=== PATIENT | male | born 1945 | race Caucasian/White ===

== ENCOUNTER 2018-04-02 19:51 | Emergency (ER) | payer OTHER, SELFPAY ==
[2018-04-02 19:58] VITALS: BP 158/92; PULSE 55; RESP 14; TEMP 36.3; O2SAT 96; BMI 28.1
--- NOTE | 2018-04-02 21:21 | ED_ITS ---
HPI - Male Genitourinary <DEBBY Baxter - Last Filed: 04/02/18 22:04> General Chief complaint: Urogenital-Male Stated complaint: URINARY FREQUENCE Time Seen by Provider: 04/02/18 20:15 Source: patient Mode of arrival: ambulatory Limitations: no limitations History of Present Illness HPI Narrative: 72-year-old male here for complaint of having urinary frequency along with some pain into the suprapubic region and also into the prostate region for the past couple of days. He denies any fevers. He denies having any blood in his urine. He denies any discharge from the penis. Positive p.o. intake. He does have a history of BPH. He denies any other concerns or complaints at this time. Related Data Home Medications Medication Instructions Recorded Confirmed Flonase Allergy Relief 2 spr/day INTRANASAL (ALT) DAILY 04/02/18 04/02/18 beclomethasone dipropionate 2 puff BID 04/02/18 04/02/18 fluoxetine 2 tab PO DAILY 04/02/18 04/02/18 gabapentin 4 tab PO DAILY 04/02/18 04/02/18 metoprolol tartrate 1 tab PO PRN 04/02/18 04/02/18 omeprazole 1 tab PO BID 04/02/18 04/02/18 sildenafil (antihypertensive) 5 tab PO PRN PRN 04/02/18 04/02/18 tamsulosin [Flomax] 1 cap PO DAILY 04/02/18 04/02/18 tizanidine [Zanaflex] See Label Instructions .ROUTE 04/02/18 04/02/18 .COMPLEX PRN Previous Rx's Medication Instructions Recorded levofloxacin [Levaquin] 500 mg PO DAILY #6 tab 04/02/18 Allergies Allergy/AdvReac Type Severity Reaction Status Date / Time No Known Drug Allergies Allergy Verified 04/02/18 19:58 Review of Systems <DEBBY Baxter - Last Filed: 04/02/18 22:04> Constitutional Denies chills, Denies fever(s), Denies lethargy and Denies weakness Eyes Denies change in vision, Denies eye discharge, Denies irritation and Denies loss of vision ENT Ears, Nose, Mouth, and Throat: Denies change in voice, Denies neck pain and Denies sore throat Cardiovascular Denies chest pain, Denies irregular heart rhythm, Denies lightheadedness, Denies palpitations, Denies dyspnea, Denies dyspnea on exertion and Denies orthopnea Respiratory Denies cough, Denies dyspnea, Denies dyspnea on exertion and Denies wheezing Gastrointestinal Gastrointestinal: Denies abdominal pain, Denies change in bowel habits, Denies diarrhea, Denies nausea and Denies vomiting Genitourinary Reports urinary frequency Comments: Prosthetic pain and suprapubic pain Musculoskeletal Denies neck pain Integumentary/Breasts Denies pruritus, Denies erythema, Denies rash and Denies wounds Neurologic Denies confusion, Denies loss of vision and Denies weakness Psychiatric Denies anxiety, Denies confusion, Denies depression, Denies homicidal ideation and Denies suicidal ideation Endocrine Denies palpitations Hematologic/Lymphatic Denies easy bruising Allergic/Immunologic Denies wheezing Exam <DEBBY Baxter - Last Filed: 04/02/18 22:04> Initial Vital Signs Initial Vital Signs: Vital Signs Temperature 97.4 F L 04/02/18 19:58 Pulse Rate 55 L 04/02/18 19:58 Respiratory Rate 14 04/02/18 19:58 Blood Pressure 158/92 H 04/02/18 19:58 Pulse Oximetry 96 04/02/18 19:58 Const General: cooperative and well developed Nutritional Appearance: well nourished Orientation: alert, awake, oriented x3 and not confused HENCA Mouth: oral mucosae normal and moist mucous membranes Eyes Conjunctivae: conjunctivae normal Sclera: sclerae normal Pupils: PERRL EOM: EOM intact bilaterally Neck Neck: normal visual inspection, trachea midline, No lymphadenopathy, No midline deformity and No JVD Lymphatic: No lymphedema Chest Chest: normal inspection of the chest GI Inspection: non-distended Palpation: soft, no hepatosplenomegaly, No guarding, No pulsatile mass and No tender Auscultation: normal bowel sounds Rectal Exam: visual inspection normal and normal sphincter tone Other: Patient does have some tenderness to the suprapubic region on exam. Prostate if feels firm non boggy it is enlarged patient does report some tenderness on prostate exam. General: No CVA tenderness Skin General: no rashes or lesions noted, No jaundice and No petechiae Neuro General: alert, oriented x3, gait normal and no focal motor deficits Speech: speech normal <Marek Gilbert DO - Last Filed: 04/03/18 02:14> Initial Vital Signs Initial Vital Signs: Vital Signs Temperature 97.4 F L 04/02/18 19:58 Pulse Rate 55 L 04/02/18 19:58 Respiratory Rate 14 04/02/18 19:58 Blood Pressure 158/92 H 04/02/18 19:58 Pulse Oximetry 96 04/02/18 19:58 Course <DEBBY Baxter - Last Filed: 04/02/18 22:04> Orders Ordered: Discontinued Medications Levofloxacin (Levaquin) 500 mg PO NOW ONE Stop: 04/02/18 21:37 Last Admin: 04/02/18 22:13 Dose: 500 mg Vital Signs - 8 hr 04/02/18 19:58 04/02/18 21:33 04/02/18 22:31 Temperature 97.4 F L 97.6 F Pulse Rate 55 L 50 L 58 L Respiratory Rate 14 16 15 Blood Pressure 158/92 H 167/93 H Blood Pressure [Left Arm] 163/95 H Pulse Oximetry 96 98 96 <Marek Gilbert DO - Last Filed: 04/03/18 02:14> Orders Ordered: Discontinued Medications Levofloxacin (Levaquin) 500 mg PO NOW ONE Stop: 04/02/18 21:37 Last Admin: 04/02/18 22:13 Dose: 500 mg Vital Signs - 8 hr 04/02/18 19:58 04/02/18 21:33 04/02/18 22:31 Temperature 97.4 F L 97.6 F Pulse Rate 55 L 50 L 58 L Respiratory Rate 14 16 15 Blood Pressure 158/92 H 167/93 H Blood Pressure [Left Arm] 163/95 H Pulse Oximetry 96 98 96 MDM - Male Genitourinary <DEBBY Baxter - Last Filed: 04/02/18 22:04> MDM Narrative Medical decision making narrative: Urinalysis was obtained was negative for any acute findings. Bladder scan was obtained and shows 650 mL inside the bladder. Cabral catheter was placed with leg bag. He is referred to Urology patient will seek Urology through his primary care on Thursday instead of following up at . Due to pain into the prostate area will empirically treat for starting prostatitis with ciprofloxacin. [id number] Tylenol as needed for any discomfort. Follow up with primary care provider and Urology return emergency room for any worsening symptoms. Discharge Plan Departure Patient Disposition: Home Clinical Impression: Acute urinary retention, Prostatitis Discharge Date/Time: 04/02/18 22:32 Interventions: ED Discharge Assessment Last Done: 04/02/18 22:31 Instructions: DI for Urinary Retention in Men Activity Restrictions/Additional Instructions: 650 mL was in your bladder after you just urinated indicating acute urinary retention most likely secondary to BPH. However could be exacerbated by starting infection called prostatitis as you are tender to the prostate area as well. Will treat for starting prostatitis with ciprofloxacin an antibiotic use as directed. You will need to follow up with Urology in the next few days for further evaluation. Have referral placed to Urology and see Urology. You may call [facility] urology if you are unable to obtain a urology referral through your primary care. For any worsening symptoms return to the emergency room. Use [id number] Tylenol and/or Motrin as needed for any discomfort. For any worsening symptoms return to the emergency room. Prescriptions: New levofloxacin [Levaquin] 500 mg tablet 500 mg PO DAILY Qty: 6 RF: 0 No Action Flonase Allergy Relief 2 spr/day Intranasal (ALT) DAILY RF: 0 beclomethasone dipropionate 2 puff BID RF: 0 tamsulosin [Flomax] 0.4 mg Capsule 1 cap PO DAILY RF: 0 gabapentin 300 mg Capsule 4 tab PO DAILY RF: 0 omeprazole 20 mg Capsule,Delayed Release(Dr/Ec) 1 tab PO BID RF: 0 fluoxetine 20 mg Capsule 2 tab PO DAILY RF: 0 metoprolol tartrate 25 mg Tablet 1 tab PO PRN RF: 0 tizanidine [Zanaflex] 4 mg Capsule See Label Instructions .ROUTE .COMPLEX PRN (Reason: Muscle Pain) RF: 0 sildenafil (antihypertensive) 20 mg Tablet 5 tab PO PRN PRN (Reason: Sexual Activity) RF: 0 Referrals: [facility] [Provider Group] Kranthi Montgomery ARNP [Emergency Provider] - <Marek Gilbert DO - Last Filed: 04/03/18 02:14> [facility] ED Attending [place] Attestation: I was available for consultation during this patient's emergency department encounter
[2018-04-02 21:33] VITALS: BP 163/95; PULSE 50; RESP 16; TEMP 36.4; O2SAT 98
[2018-04-02] MEDS: levoFLOXacin 500 MG TABLET PO (22:13)
[2018-04-02 22:31] VITALS: BP 167/93; PULSE 58; RESP 15; O2SAT 96
== END 2018-04-02 22:32 | disposition home or self-care (01) ==
PROVIDERS: Emergency Provider Nurse Practitioner Family
DX: R33.9 Retention of urine, unspecified (principal); N41.9 Inflammatory disease of prostate, unspecified
CPT/HCPCS: 51701; 51798; 81003; 99283

== ENCOUNTER 2018-12-23 22:23 | Emergency (ER) | payer OTHER, SELFPAY ==
[2018-12-23 22:24] VITALS: BP 136/80; PULSE 75; RESP 20; TEMP 37.6; O2SAT 97; BMI 28.7
[2018-12-23] MEDS: SODIUM CHLORIDE 0.9% 1,000 ML 1000 ML IV (22:40)
--- NOTE | 2018-12-23 22:40 | DI.RAD.S_ITS ---
PROCEDURE: XR CHEST 1V INDICATIONS: suspected sepsis TECHNIQUE: One view of the chest was acquired. COMPARISON: None. FINDINGS: Surgical changes and devices: None. Lungs and pleura: Low lung volumes. Visible lung park are clear. No pleural effusions or pneumothorax. Mediastinum: Mediastinal contours appear normal. Heart size is normal. Bones and chest wall: No suspicious bony lesions. Overlying soft tissues appear unremarkable. IMPRESSION: Given low lung volumes, negative chest. Dictated by: Radha Riddle M.D. on 12/24/2018 at 7:52 Approved by: Radha Riddle M.D. on 12/24/2018 at 7:53
[2018-12-23 22:55] LABS: Add Manual Diff / Slide Review NO; Basophils Absolute Auto 0 /uL (0-100); Basophils Percent Auto 0.4 % (0-2); Eosinophils Absolute Auto 0 /uL (0-450); Eosinophils Percent Auto 0.5 % (2-4); Hematocrit 40.4 % (41-53); Lymphocytes Absolute Auto 700 /uL (1100-4500); Lymphocytes Percent Auto 7.5 % (25-40); Mean Corpuscular HGB Conc 32.2 % (30-36); Mean Corpuscular Hemoglobin 28.1 PG (26-34); Mean Corpuscular Volume 87.5 fL (80-100); Monocytes Absolute Auto 1400 /uL (0-900); Neutrophils Absolute Auto 7500 /uL (1500-7000); Neutrophils Percent Auto 77.6 % (50-75); Platelet Count 224 X10^3/uL (150-400); Red Blood Cell Count 4.61 X10^6/uL (4.5-5.9); Red Cell Distribution Width 14.7 % (11.6-14.8); White Blood Cell Count 9.7 X10^3/uL (4.5-11.0)
[2018-12-23 22:57] LABS: INR 1.1 (0.9-1.3); Prothrombin Time 13.1 SECONDS (10.1-12.7)
[2018-12-23 23:00] LABS: PTT Partial Thromboplastin Tim 30 SECONDS (26.4-36.2)
--- NOTE | 2018-12-23 23:00 | ED_ITS ---
HPI - Fever General Chief Complaint: Fever Stated Complaint: Fever Time Seen by Provider: 12/23/18 22:39 Source: patient Mode of arrival: ambulatory Limitations: no limitations History of Present Illness HPI Narrative: Patient is a 73-year-old male who presents with fever. His he is currently taking Lupron for prostate cancer. He had extreme fatigue yesterday and today. At home he had temperature of 103? he took Tylenol and aspirin prior to arrival he is now sweating and afebrile. He has no specific complaints. No chest pain no cough no abdominal pain nausea vomiting or painful urination. complaint: fever Related Data Home Medications Medication Instructions Recorded Confirmed Flonase Allergy Relief 2 spr/day INTRANASAL (ALT) DAILY 04/02/18 04/02/18 beclomethasone dipropionate 2 puff BID 04/02/18 04/02/18 fluoxetine 2 tab PO DAILY 04/02/18 04/02/18 gabapentin 4 tab PO DAILY 04/02/18 04/02/18 metoprolol tartrate 1 tab PO PRN 04/02/18 04/02/18 omeprazole 1 tab PO BID 04/02/18 04/02/18 sildenafil (antihypertensive) 5 tab PO PRN PRN 04/02/18 04/02/18 tamsulosin [Flomax] 1 cap PO DAILY 04/02/18 04/02/18 tizanidine [Zanaflex] See Rx Instructions .ROUTE 04/02/18 04/02/18 .COMPLEX PRN Previous Rx's Medication Instructions Recorded levofloxacin [Levaquin] 500 mg PO DAILY #6 tab 04/02/18 Allergies Allergy/AdvReac Type Severity Reaction Status Date / Time No Known Drug Allergies Allergy Verified 04/02/18 19:58 Review of Systems Review of Systems ROS Unobtainable: All systems reviewed & are unremarkable except as noted in HPI and below Constitutional Reports body ache(s), Reports fatigue, Reports fever(s), Denies headache(s) and Reports weakness Eyes Denies change in vision, Denies eye discharge, Denies irritation and Denies loss of vision ENT Ears, Nose, Mouth, and Throat: Denies headache(s) Cardiovascular Denies chest pain, Denies irregular heart rhythm, Denies lightheadedness, Denies palpitations, Denies dyspnea, Denies dyspnea on exertion and Denies orthopnea Respiratory Denies cough, Denies dyspnea, Denies dyspnea on exertion and Denies wheezing Gastrointestinal Gastrointestinal: Denies abdominal pain, Denies change in bowel habits, Denies diarrhea, Denies nausea and Denies vomiting Genitourinary Denies hematuria, Denies flank pain, Denies urinary incontinence and Denies urinary urgency Musculoskeletal Denies back pain, Denies muscle weakness, Denies numbness and Denies tingling Integumentary/Breasts Denies pruritus, Denies erythema, Denies rash and Denies wounds Neurologic Denies confusion, Denies headache(s), Denies loss of vision, Denies numbness, Denies tingling and Reports weakness Psychiatric Denies anxiety, Denies confusion, Denies depression, Denies homicidal ideation and Denies suicidal ideation Endocrine Reports fatigue and Denies palpitations Allergic/Immunologic Denies wheezing [facility] Medical History BPH (benign prostatic hyperplasia) (Acute) Chronic low back pain (Acute) Cough variant asthma (Acute) GERD (gastroesophageal reflux disease) (Acute) Hernia (Acute) Kidney stone (Acute) Neuropathy (Acute) PAF (paroxysmal atrial fibrillation) (Acute) Prostate CA (Acute) SSS (sick sinus syndrome) (Acute) Surgical History History of lumbar spinal fusion (Acute) Status post recent transurethral resection of prostate (Acute) Social History (Updated 12/23/18 @ 23:00 by Damaris Villasenor DO) marital status: household members: spouse Smoking Status: Never smoker Social History marital status: household members: spouse Smoking Status: Never smoker Comment: Retired orthopedic surgeon Exam Initial Vital Signs Initial Vital Signs: Vital Signs Temperature 99.7 F H 12/23/18 22:24 Pulse Rate 75 12/23/18 22:24 Respiratory Rate 20 12/23/18 22:24 Blood Pressure 136/80 12/23/18 22:24 Pulse Oximetry 97 12/23/18 22:24 GENERAL: Alert pleasant male no acute distress now diaphoretic and sweaty and in no acute distress. HEENT: Head atraumatic,EOMI, pupils reactive, face symmetric CARDIOVASCULAR: Regular rate and rhythm without murmurs, rubs or gallops. RESPIRATORY: Breath sounds equal bilaterally, no wheezes rales or rhonchi. ABDOMEN: Soft, nontender. Normoactive bowel sounds all 4 quadrants. No guarding or rebound. EXTREMITIES: Normal range of motion, no clubbing or edema. Neurovascularly intact NEUROLOGICAL: Alert and oriented x4.Normal gait and speech. SKIN: Warm, dry, no laceration, no petechiae, no rashes or lesions. Course Orders Ordered: ED Orders 12/23/18 22:35 Complete Blood Count AUTO DIFF Stat Comprehensive Metabolic Panel Stat Lipase Stat Partial Thromboplastin Time Stat Procalcitonin Stat Prothrombin Time INR Stat 12/23/18 22:40 XR chest 1V Stat Blood Culture Stat Lactate (Lactic Acid) Stat 12/24/18 00:13 Urine Microscopic Stat Discontinued Medications Sodium Chloride (Normal Saline 0.9%) 1,000 mls @ 1,000 mls/hr IV BOLUS ONE Stop: 12/23/18 23:39 Last Infusion: 12/23/18 23:50 Dose: 1,000 mls/hr Admin: 12/23/18 22:40 Dose: 1,000 mls/hr Vital Signs - 8 hr 12/23/18 22:24 12/23/18 23:51 12/24/18 00:48 Temperature 99.7 F H 98.7 F 98.8 F Pulse Rate 75 62 Respiratory Rate 20 15 Blood Pressure 136/80 111/68 Pulse Oximetry 97 95 MDM - Fever Lab Data Attestation: I reviewed the patient's lab results. Result diagrams: 12/23/18 22:35 12/23/18 22:35 Lab Results 12/23/18 12/23/18 12/23/18 Range/Units 22:35 22:35 22:35 WBC 9.7 (4.5-11.0) X10^3/uL RBC 4.61 (4.5-5.9) X10^6/uL Hgb 13.0 L (13.5-17.5) g/dL Hct 40.4 L (41-53) % MCV 87.5 (80-100) fL MCH 28.1 (26-34) PG MCHC 32.2 (30-36) % RDW 14.7 (11.6-14.8) % Plt Count 224 (150-400) X10^3/uL Neut % (Auto) 77.6 H (50-75) % Lymph % (Auto) 7.5 L (25-40) % Blaine % (Auto) 14.0 (3-14) % Eos % (Auto) 0.5 L (2-4) % Baso % (Auto) 0.4 (0-2) % Neut # (Auto) 7500 H (4033-3170) /uL Lymph # (Auto) 700 L (1844-1647) /uL Blaine # (Auto) 1400 H (0-900) /uL Eos # (Auto) 0 (0-450) /uL Baso # (Auto) 0 (0-100) /uL PT 13.1 H (10.1-12.7) SECONDS INR 1.1 (0.9-1.3) APTT 30 (26.4-36.2) SECONDS Sodium (137-145) mmol/L Potassium (3.4-5.1) mmol/L Chloride (98-107) mmol/L Carbon Dioxide (22-32) mmol/L BUN (9-20) mg/dL Creatinine (0.66-1.25) mg/dL Estimated GFR (>60) mL/min BUN/Creatinine Ratio (6-22) Glucose (80-110) mg/dL Lactate (0.7-2.1) mmol/L Calcium (8.4-10.2) mg/dL Total Bilirubin (0.2-1.3) mg/dL AST (17-59) IU/L ALT (21-72) IU/L Alkaline Phosphatase (38-126) U/L Total Protein (6.3-8.2) g/dL Albumin (3.5-5.0) g/dL Globulin (1.7-4.1) g/dL Albumin/Globulin Ratio (1.0-2.8) Lipase (23-300) U/L Procalcitonin 0.09 (<0.5) ng/mL Urine RBC (0-5/HPF) Urine WBC (0-5/HPF) Urine Bacteria (None) Ur Culture Indicated? 12/23/18 12/23/18 12/24/18 Range/Units 22:35 22:40 00:13 WBC (4.5-11.0) X10^3/uL RBC (4.5-5.9) X10^6/uL Hgb (13.5-17.5) g/dL Hct (41-53) % MCV (80-100) fL MCH (26-34) PG MCHC (30-36) % RDW (11.6-14.8) % Plt Count (150-400) X10^3/uL Neut % (Auto) (50-75) % Lymph % (Auto) (25-40) % Blaine % (Auto) (3-14) % Eos % (Auto) (2-4) % Baso % (Auto) (0-2) % Neut # (Auto) (1749-8609) /uL Lymph # (Auto) (7115-7333) /uL Blaine # (Auto) (0-900) /uL Eos # (Auto) (0-450) /uL Baso # (Auto) (0-100) /uL PT (10.1-12.7) SECONDS INR (0.9-1.3) APTT (26.4-36.2) SECONDS Sodium 133 L (137-145) mmol/L Potassium 3.7 (3.4-5.1) mmol/L Chloride 95 L (98-107) mmol/L Carbon Dioxide 26 (22-32) mmol/L BUN 20 (9-20) mg/dL Creatinine 1.10 (0.66-1.25) mg/dL Estimated GFR > 60.0 (>60) mL/min BUN/Creatinine Ratio 18.2 (6-22) Glucose 112 H (80-110) mg/dL Lactate 0.8 (0.7-2.1) mmol/L Calcium 8.7 (8.4-10.2) mg/dL Total Bilirubin 0.5 (0.2-1.3) mg/dL AST 45 (17-59) IU/L ALT 27 (21-72) IU/L Alkaline Phosphatase 68 (38-126) U/L Total Protein 7.2 (6.3-8.2) g/dL Albumin 4.2 (3.5-5.0) g/dL Globulin 3.0 (1.7-4.1) g/dL Albumin/Globulin Ratio 1.4 (1.0-2.8) Lipase 50 (23-300) U/L Procalcitonin (<0.5) ng/mL Urine RBC 5-10/hpf H (0-5/HPF) Urine WBC 1-5/hpf (0-5/HPF) Urine Bacteria None seen (None) Ur Culture Indicated? Cult not indicated Urine Dip Bedside Urine Glucose Negative Bedside Urine Bilirubin - Negative Bedside Urine Ketone +/- 5 Urine Specific [place] 1.020 Bedside Urine Occult Blood + Bedside Urine pH 5.5 Bedside Urine Protein +/- 15 Bedside Urine Urobilinogen +/- 1mg Bedside Urine Nitrite - Negative Bedside Urine Leukocytes +/- 15 Esterase Imaging Data Chest x-ray: Attestation: I personally reviewed and interpreted this imaging study as follows: My impression: No acute cardiopulmonary process MDM Narrative Medical decision making narrative: Patient overall is feeling better does not appear septic no source of infection found. Complaint of fever and extreme f atigue. He is not neutropenic. At this time I recommend outpatient follow-up. I discussed testing results with both patient and . They agree with this decision. Discharge Plan Departure Patient Disposition: Home Clinical Impression: Acute viral syndrome Discharge Date/Time: 12/24/18 00:48 Interventions: ED Discharge Assessment Last Done: 12/24/18 00:48 Instructions: DI for Fever (Symptom) -- Adult Activity Restrictions/Additional Instructions: *You have been diagnosed with viral syndrome *What to do: At this time no indication for antibiotics. Stay hydrated, fever control *Continue to take medications as directed *Follow up with your primary care provider in 2-3 days *Return to ER if you should have fever not controlled, confusion, decreased oral intake or any new, worsening or concerning symptoms Prescriptions: No Action Flonase Allergy Relief 2 spr/day Intranasal (ALT) DAILY RF: 0 beclomethasone dipropionate 2 puff BID RF: 0 tamsulosin [Flomax] 0.4 mg Capsule 1 cap PO DAILY RF: 0 gabapentin 300 mg Capsule 4 tab PO DAILY RF: 0 omeprazole 20 mg Capsule,Delayed Release(Dr/Ec) 1 tab PO BID RF: 0 fluoxetine 20 mg Capsule 2 tab PO DAILY RF: 0 metoprolol tartrate 25 mg Tablet 1 tab PO PRN RF: 0 tizanidine [Zanaflex] 4 mg Capsule See Rx Instructions .ROUTE .COMPLEX PRN (Reason: Muscle Pain) RF: 0 sildenafil (antihypertensive) 20 mg Tablet 5 tab PO PRN PRN (Reason: Sexual Activity) RF: 0 levofloxacin [Levaquin] 500 mg tablet 500 mg PO DAILY Qty: 6 RF: 0
[2018-12-23 23:04] LABS: Alanine Aminotransferase 27 IU/L (21-72); Albumin 4.2 g/dL (3.5-5.0); Albumin Globulin Ratio 1.4 (1.0-2.8); Alkaline Phosphatase 68 U/L (38-126); Aspartate Aminotransferase 45 IU/L (17-59); BUN Creatinine Ratio 18.2 (6-22); Bilirubin Total 0.5 mg/dL (0.2-1.3); Blood Urea Nitrogen 20 mg/dL (9-20); Calcium 8.7 mg/dL (8.4-10.2); Carbon Dioxide 26 mmol/L (22-32); Chloride 95 mmol/L (98-107); Estimated Glomerular Filt Rate > 60.0 mL/min (>60); Glucose 112 mg/dL (80-110); HEMOLYSIS < 15 (0-50); Lipase 50 U/L (23-300); Potassium 3.7 mmol/L (3.4-5.1); Sodium 133 mmol/L (137-145); Total Protein 7.2 g/dL (6.3-8.2)
[2018-12-23 23:08] LABS: Lactate (Lactic Acid) 0.8 mmol/L (0.7-2.1)
[2018-12-23 23:21] LABS: Procalcitonin 0.09 ng/mL (<0.5)
[2018-12-23 23:51] VITALS: TEMP 37.1
--- NOTE | 2018-12-24 00:06 | PC.NURSE ---
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 Reports fatigue for past two days, is on Lupron for Prostate Cancer. Pt denies pain, is diaphortic and afebrile 98.7 oral temp.
[2018-12-24 00:15] LABS: Bacteria Urine None Seen
[2018-12-24 00:29] LABS: RBC Urine 5-10/HPF (0-5/HPF); WBC Urine 1-5/HPF (0-5/HPF)
[2018-12-24 00:30] LABS: Culture Indicated Urine Cult Not Indicated
[2018-12-24 00:48] VITALS: BP 111/68; PULSE 62; RESP 15; TEMP 37.1; O2SAT 95
== END 2018-12-24 00:48 | disposition home or self-care (01) ==
PROVIDERS: Emergency Provider Emergency Medicine
DX: B34.9 Viral infection, unspecified (principal)
CPT/HCPCS: 36415; 36591; 71045; 80053; 81003; 81015; 83605; 83690; 84145; 85025; 85610; 85730; 87040; 96360; 99283; 99284

== ENCOUNTER 2023-01-29 18:53 | Emergency (ER) | payer OTHER, SELFPAY ==
[2023-01-29 18:58] VITALS: BP 120/79; PULSE 84; RESP 16; TEMP 36.5; O2SAT 99; BMI 25.2
[2023-01-29 19:08] VITALS: PULSE 80; RESP 21; O2SAT 95
--- NOTE | 2023-01-29 19:15 | ED.GENADULT ---
HPI - General Adult General Chief complaint: Syncope Stated complaint: Near syncope after hiking Time Seen by Provider: 01/29/23 18:58 Source: patient and EMS Mode of arrival: EMS History of Present Illness HPI narrative: Patient is a 77-year-old male. He does have a history of paroxysmal atrial fibrillation. Is not on anticoagulation. Did go on a hike today. He states that he was at his baseline health. He was driving home from the hike when he says he had a short episode of he felt like things were closing in on him. He felt like things were going black that he was going to pass out. During this time he did not have any chest pain or shortness of breath or palpitations. He was driving the car. He was able to get the car off to the side of the road. He reported no numbness or tingling in his arms or hands. He then completely resolved. His who was in the car with him contacted EMS. EMS reports that the patient did have positive orthostatic blood pressures. Here in the emergency department he has no specific complaints Related Data Home Medications Medication Instructions Recorded Confirmed Flonase Allergy Relief 2 spr/day intranasal (ALT) DAILY 04/02/18 04/02/18 beclomethasone dipropionate 2 puff BID 04/02/18 04/02/18 fluoxetine 20 mg capsule 2 tab PO DAILY 04/02/18 04/02/18 gabapentin 300 mg capsule 4 tab PO DAILY 04/02/18 04/02/18 metoprolol tartrate 25 mg tablet 1 tab PO PRN 04/02/18 04/02/18 omeprazole 20 mg capsule,delayed 1 tab PO BID 04/02/18 04/02/18 release sildenafil (pulm.hypertension) 20 5 tab PO PRN PRN Sexual Activity 04/02/18 04/02/18 mg tablet tamsulosin 0.4 mg capsule (Flomax) 1 cap PO DAILY 04/02/18 04/02/18 tizanidine 4 mg capsule (Zanaflex) See Rx Instructions .Route 04/02/18 04/02/18 .COMPLEX PRN Muscle Pain Previous Rx's Medication Instructions Recorded levofloxacin 500 mg tablet 500 mg PO DAILY #6 tabs 04/02/18 (Levaquin) Allergies Allergy/AdvReac Type Severity Reaction Status Date / Time No Known Drug Allergies Allergy Verified 01/29/23 19:02 Review of Systems Constitutional Constitutional: Reports system reviewed and no additional complaints, except as documented Cardiovascular Cardiovascular: Reports system reviewed and no additional complaints, except as documented Respiratory Respiratory: Reports system reviewed and no additional complaints, except as documented Gastrointestinal Gastrointestinal: Reports system reviewed and no additional complaints, except as documented Integumentary/Breasts Skin/Breast: Reports system reviewed and no additional complaints, except as documented Neurologic Neurologic: Reports system reviewed and no additional complaints, except as documented Hematologic/Lymphatic On Anticoagulants: No Patient History Medical History BPH (benign prostatic hyperplasia) Chronic low back pain Cough variant asthma GERD (gastroesophageal reflux disease) Hernia Kidney stone Neuropathy PAF (paroxysmal atrial fibrillation) Prostate CA SSS (sick sinus syndrome) Surgical History History of lumbar spinal fusion Status post recent transurethral resection of prostate Social History marital status: household members: spouse Smoking Status: Never smoker Smoking Status: Never smoker alcohol intake frequency: a few times a week Substance Use Type: does not use Exam Initial Vital Signs Initial Vital Signs: Vital Signs Temperature 97.7 F 01/29/23 18:58 Pulse Rate 84 01/29/23 18:58 Respiratory Rate 16 01/29/23 18:58 Blood Pressure 120/79 01/29/23 18:58 Pulse Oximetry 99 01/29/23 18:58 Oxygen Delivery Method Room Air 01/29/23 18:58 Const General: cooperative and comfortable HENMT Head: normal to inspection and normocephalic Resp Effort & Inspection: normal respiratory effort Auscultation: clear to auscultation bilaterally Cardio Rate: regular rate Rhythm: regular rhythm GI Inspection: normal to inspection Palpation: soft and No tender Skin General: no rashes or lesions noted Neuro General: patient alert, patient awake and moves all extremities Extrem General: normal to inspection Course Orders Ordered: ED Orders 01/29/23 18:59 EKG-12 Lead Stat 01/29/23 19:02 Basic Metabolic Panel Stat Complete Blood Count AUTO DIFF Stat Troponin & CK Cardiac Panel Stat 01/29/23 20:00 UA Complete [Urinalysis and Microscopic] Stat Urine Culture Stat Discontinued Medications Sodium Chloride (Normal Saline 0.9%) 1,000 mls @ 1,000 mls/hr IV BOLUS ONE Stop: 01/29/23 20:14 Last Infusion: 01/29/23 20:04 Dose: 0 mls/hr Documented By: Admin: 01/29/23 19:16 Dose: 1,000 mls/hr Documented By: Vital Signs Vital signs: Vital Signs - 8 hr 01/29/23 18:58 01/29/23 19:08 01/29/23 19:30 Temperature 97.7 F Pulse Rate 84 80 Pulse Rate [Orthostatic Lying] Pulse Rate [Orthostatic Sitting] Pulse Rate [Orthostatic Standing] Respiratory Rate 16 21 Blood Pressure 120/79 109/68 Blood Pressure [Orthostatic Lying] Blood Pressure [Orthostatic Sitting] Blood Pressure [Orthostatic Standing] Pulse Oximetry 99 95 Oxygen Delivery Method Room Air 01/29/23 19:30 01/29/23 20:05 01/29/23 20:05 Temperature Pulse Rate 67 Pulse Rate [Orthostatic Lying] 64 Pulse Rate [Orthostatic Sitting] 79 Pulse Rate [Orthostatic Standing] 80 Respiratory Rate 15 Blood Pressure Blood Pressure [Orthostatic Lying] 133/73 Blood Pressure [Orthostatic Sitting] 128/83 Blood Pressure [Orthostatic Standing] 126/79 Pulse Oximetry 97 98 Oxygen Delivery Method Room Air Medical Decision Making Lab Data Lab results reviewed: Yes I reviewed the patient's lab results. 01/29/23 19:02 01/29/23 19:02 Labs: Lab Results 01/29/23 01/29/23 01/29/23 Range/Units 19:02 19:02 20:00 WBC 10.8 (4.5-11.0) X10^3/uL RBC 4.70 (4.5-5.9) X10^6/uL Hgb 14.1 (13.5-17.5) g/dL Hct 42.4 (41-53) % MCV 90.3 (80-100) fL MCH 30.0 (26-34) PG MCHC 33.2 (30-36) % RDW 14.8 (11.6-14.8) % Plt Count 296 (150-400) X10^3/uL Neut % (Auto) 63.0 (50-75) % Lymph % (Auto) 26.6 (25-40) % Cecil % (Auto) 8.1 (3-14) % Eos % (Auto) 1.8 L (2-4) % Baso % (Auto) 0.5 (0-2) % Neut # (Auto) 6800 (2646-4353) /uL Lymph # (Auto) 2900 (6516-9881) /uL Cecil # (Auto) 900 (0-900) /uL Eos # (Auto) 200 (0-450) /uL Baso # (Auto) 0 (0-100) /uL Sodium 137 (137-145) mmol/L Potassium 4.8 (3.4-5.1) mmol/L Chloride 98 (98-107) mmol/L Carbon Dioxide 27 (22-32) mmol/L BUN 27 H (9-20) mg/dL Creatinine 1.37 H (0.66-1.25) mg/dL Estimated GFR 52 L (>60) mL/min BUN/Creatinine Ratio 19.7 (6-22) Glucose 98 (80-110) mg/dL Calcium 9.5 (8.4-10.2) mg/dL Total Creatine Kinase 124 (55-170) U/L CK-MB (CK-2) TNP CK-MB (CK-2) Rel Index TNP Troponin I 0.013 (0.01-0.034) ng/mL Urine Color Yellow Urine Appearance Clear Urine pH 6.5 (4.5-8.0) Ur Specific [place] 1.010 (1.000-1.035) Urine Protein Negative (Negative) Urine Glucose (UA) Negative (Negative) g/dL Urine Ketones Trace H (NEGATIVE) Urine Occult Blood Negative (Negative) Urine Nitrate Negative (Negative) Urine Bilirubin Negative (NEGATIVE) Urine Urobilinogen 1.0 (0.2) E.U./dL Ur Leukocyte Esterase Negative (NEGATIVE) Urine RBC None seen (0-5/HPF) Urine WBC 1-5/hpf (0-5/HPF) Ur Squamous Epith Cells 0-1 /hpf (0-5/HPF) Amorphous Sediment 1+ Urine Bacteria Occasional (0-1) (None) Hyaline Casts 5-10/lpf (None) Granular Casts 5-10/lpf (None) Ur Culture Indicated? Specimen cultured ECG Data Attestation: I personally reviewed and interpreted this ECG as follows: Interpretation: Sinus rhythm Ventricular rate is 78 First-degree AV block with a NE interval of 234 milliseconds Left axis deviation Occasional PVC No ST T wave changes MDM Narrative Medical decision making narrative: Patient's labs are unremarkable except for slight elevation in his creatinine. I did discuss this with him. He states he had blood work done a couple days ago in his creatinine was 1.0. He does have PVCs on his EKG but is sinus rhythm. Patient is now asymptomatic. He was able to stand up and walk around the department without any symptoms. I have low suspicion for CVA/TIA. Potentially could have had an arrhythmia but he does have a loop recorder implanted. Will discharge patient home. No indication for head CT. He was given return precautions and follow-up instructions. Patient states he feels comfortable going home. Expressed understanding and agreement with this plan. Discharge Plan Departure Patient Disposition: Home Clinical Impression: Pre-syncope Instructions: Fainting Prescriptions: No Action Flonase Allergy Relief 2 spr/day Intranasal (ALT) DAILY beclomethasone dipropionate 2 puff BID tamsulosin [Flomax] 0.4 mg Capsule 1 cap PO DAILY gabapentin 300 mg Capsule 4 tab PO DAILY omeprazole 20 mg Capsule,Delayed Release(Dr/Ec) 1 tab PO BID fluoxetine 20 mg Capsule 2 tab PO DAILY metoprolol tartrate 25 mg Tablet 1 tab PO PRN tizanidine [Zanaflex] 4 mg Capsule See Rx Instructions .ROUTE .COMPLEX PRN (Reason: Muscle Pain) Rx Instructions: 1 tab orally sildenafil (pulm.hypertension) 20 mg Tablet 5 tab PO PRN PRN (Reason: Sexual Activity) levofloxacin [Levaquin] 500 mg tablet 500 mg PO DAILY Qty: 6 0RF Referrals: Jose Moreno PA-C [Primary Care Provider] - Stand Alone Forms: Patient Portal/API
[2023-01-29] MEDS: SODIUM CHLORIDE 0.9% 1,000 ML 1000 ML IV (19:16)
[2023-01-29 19:28] LABS: Add Manual Diff / Slide Review NO; BUN Creatinine Ratio 19.7 (6-22); Basophils Absolute Auto 0 /uL (0-100); Basophils Percent Auto 0.5 % (0-2); Blood Urea Nitrogen 27 mg/dL (9-20); Calcium 9.5 mg/dL (8.4-10.2); Carbon Dioxide 27 mmol/L (22-32); Chloride 98 mmol/L (98-107); Creatine Kinase 124 U/L (55-170); Eosinophils Absolute Auto 200 /uL (0-450); Eosinophils Percent Auto 1.8 % (2-4); Estimated Glomerular Filt Rate 52 mL/min (>60); Glucose 98 mg/dL (80-110); Hematocrit 42.4 % (41-53); Hemoglobin 14.1 g/dL (13.5-17.5); Lymphocytes Absolute Auto 2900 /uL (1100-4500); Lymphocytes Percent Auto 26.6 % (25-40); Mean Corpuscular HGB Conc 33.2 % (30-36); Mean Corpuscular Volume 90.3 fL (80-100); Monocytes Absolute Auto 900 /uL (0-900); Monocytes Percent Auto 8.1 % (3-14); Neutrophils Absolute Auto 6800 /uL (1500-7000); Platelet Count 296 X10^3/uL (150-400); Red Cell Distribution Width 14.8 % (11.6-14.8); Sodium 137 mmol/L (137-145); White Blood Cell Count 10.8 X10^3/uL (4.5-11.0)
[2023-01-29 19:30] VITALS: BP 109/68; PULSE 67; RESP 15; O2SAT 97
[2023-01-29 19:32] LABS: HEMOLYSIS 74 (0-50); Potassium 4.8 mmol/L (3.4-5.1)
[2023-01-29 19:40] LABS: Troponin I 0.013 ng/mL (0.01-0.034)
[2023-01-29 20:05] VITALS: BP 126/79; BP 128/83; BP 133/73; PULSE 64; PULSE 79; PULSE 80; O2SAT 98
[2023-01-29 20:20] LABS: Appearance Urine UA CLEAR; Bilirubin Urine UA NEGATIVE (NEGATIVE); Color Urine UA YELLOW; Glucose Urine UA NEGATIVE (Negative); Ketones Urine UA TRACE (NEGATIVE); Leukocyte Esterase Urine UA NEGATIVE (NEGATIVE); Nitrite Urine UA NEGATIVE (Negative); Occult Blood Urine UA NEGATIVE (Negative); Protein Urine UA NEGATIVE (Negative); pH Urine UA 6.5 (4.5-8.0)
[2023-01-29 20:26] LABS: RBC Urine None Seen (0-5/HPF); WBC Urine 1-5/HPF (0-5/HPF)
[2023-01-29 20:27] LABS: Amorphous Sediment Urine 1+; Bacteria Urine Occasional (0-1); Culture Indicated Urine Specimen Cultured; Granular Casts Urine 5-10/LPF; Hyaline Casts Urine 5-10/LPF; Squamous Epithelial Cell Urine 0-1 /HPF (0-5/HPF)
== END 2023-01-29 20:19 | disposition home or self-care (01) ==
PROVIDERS: Emergency Provider Emergency Medicine; PCP Physician Assistant
DX: R55 Syncope and collapse (principal); R07.9 Chest pain, unspecified
CPT/HCPCS: 80048; 81001; 82550; 84484; 85025; 87086; 93005; 99284